=== PATIENT | male | born 1995 | race Caucasian/White ===

== ENCOUNTER 2017-06-25 03:06 | Emergency (ER) | payer MEDICAID ==
[2017-06-25] MEDS ORDERED: Ondansetron 8 MG Tab.DIS PO ONE (03:28)
[2017-06-25] MEDS ORDERED: Alum Hydroxide/Mag Hydroxide 15 ML, Lidocaine 2% 15 ML PO ONE ×2 (03:28)
--- NOTE | 2017-06-25 03:31 | EDM.PDOC ---
ED HPI GENERAL MEDICAL PROBLEM - General Stated Complaint: CHEST PAIN Time Seen by Provider: 06/25/17 03:06 Source of Information: Reports: Patient History Limitations: Reports: No Limitations - History of Present Illness INITIAL COMMENTS - FREE TEXT/NARRATIVE: 22 y.o.w.m came to the ed due to mid upper abd. pain for several hours. Denied ETOH intake, stess, trauma, spicy food etc. He never had this symptoms before. No N/V/D or any other acute medical issues. BP 107/83 pulse 71 RR 18 Pulse ox 100% on RA Temp 36.7 Onset Date: 06/24/17 Onset Time: 20:00 Duration: Hour(s): Location: Reports: Abdomen (mid upper ) Quality: Reports: Burning Severity: Mild Improves with: Reports: Rest Worsens with: Reports: Movement Context: Reports: Other ((?)) Associated Symptoms: Reports: No Other Symptoms Epigastric region Pain Score (Numeric/FACES): 8 - Related Data Allergies Allergy/AdvReac Type Severity Reaction Status Date / Time No Known Allergies Allergy Verified 06/25/17 03:24 Home Meds: Home Meds Omeprazole 40 mg PO BEDTIME #7 cap.sr 06/25/17 [Rx] Ondansetron [Zofran ODT] 4 mg PO Q6H PRN #4 tab.dis 06/25/17 [Rx] ED ROS GENERAL - Review of Systems Review Of Systems: See Below Constitutional: Reports: No Symptoms HEENT: Reports: No Symptoms Respiratory: Reports: No Symptoms Cardiovascular: Reports: No Symptoms Endocrine: Reports: No Symptoms GI/Abdominal: Reports: Abdominal Pain (epigastric) : Reports: No Symptoms Musculoskeletal: Reports: No Symptoms Skin: Reports: No Symptoms Neurological: Reports: No Symptoms Psychiatric: Reports: No Symptoms Hematologic/Lymphatic: Reports: No Symptoms Immunologic: Reports: No Symptoms ED EXAM, GI/ABD - Physical Exam Exam: See Below Exam Limited By: No Limitations General Appearance: Alert, WD/WN, Mild Distress Eyes: Bilateral: Normal Appearance Ears: Normal External Exam Nose: Normal Inspection Throat/Mouth: Normal Inspection Head: Atraumatic, Normocephalic Neck: Normal Inspection, Supple, Non-Tender, Full Range of Motion Respiratory/Chest: No Respiratory Distress, Lungs Clear, Normal Breath Sounds Cardiovascular: Normal Peripheral Pulses, Regular Rate, Rhythm, No Edema, No Gallop, No JVD, No Murmur, No Rub GI/Abdominal Exam: Tender (epigastric) (Male) Exam: Deferred Rectal (Males) Exam: Deferred Back Exam: Normal Inspection, Full Range of Motion Extremities: Normal Inspection, Normal Range of Motion, Non-Tender, No Pedal Edema Neurological: Alert, Oriented, CN II-XII Intact, Normal Cognition, Normal Gait, No Motor/Sensory Deficits Psychiatric: Normal Affect, Normal Mood Skin Exam: Warm, Dry, Intact, Normal Color, No Rash Lymphatic: No Adenopathy Course - Vital Signs Text/Narrative:: 22 y.o.w.m came to the ed due to mid upper abd. pain for several hours. Denied ETOH intake, stess, trauma, spicy food etc. He never had this symptoms before. No N/V/D or any other acute medical issues. BP 107/83 pulse 71 RR 18 Pulse ox 100% on RA Temp 36.7 PE: Epigastric tenderness Impression: Gastritis Tx: Zofran, GI cocktail Reexam: Improved Plan: D/C with instructions Last Recorded V/S: Last Vital Signs Temp 36.4 C 06/25/17 03:12 Pulse 65 06/25/17 03:12 Resp 18 06/25/17 03:47 BP 115/67 06/25/17 03:47 Pulse Ox 100 06/25/17 03:47 - Orders/Labs/Meds Meds: Medications Discontinued Medications Generic Name Dose Route Start Last Admin Trade Name Freq PRN Reason Stop Dose Admin Al Hydroxide/Mg Hydroxide 15 0 ml 06/25/17 03:28 06/25/17 03:38 ml/ Lidocaine HCl 15 ml PO 06/25/17 03:29 15 ml ONETIME ONE Administration Ondansetron HCl 8 mg 06/25/17 03:28 06/25/17 03:38 Zofran Odt PO 06/25/17 03:29 8 mg ONETIME ONE Administration Departure - Departure Time of Disposition: 04:15 Disposition: Home, Self-Care 01 Condition: Good Clinical Impression: Gastritis and duodenitis - Discharge Information Prescriptions: Omeprazole 40 mg PO BEDTIME #7 cap.sr Ondansetron [Zofran ODT] 4 mg PO Q6H PRN #4 tab.dis PRN Reason: for nausea Instructions: Gastritis, Adult, [id number] Referrals: PCP,None [Primary Care Provider] - Forms: ED Department Discharge Additional Instructions: Please advance diet as tolerated, please take Zofran as needed for nausea and Omeprazole 40mg daily at bedtime as recommended, please follow up with regular MD in 1 week at clinic for recheck, come back if worse.
== END 2017-06-25 03:54 | disposition home or self-care (01) ==
LOC: FB.ED 03:06
DX: K29.70 Gastritis, unspecified, without bleeding (principal); K29.80 Duodenitis without bleeding
CPT/HCPCS: 99284; A9270